=== PATIENT | female | born 1975 | race African-American/Black ===

== ENCOUNTER 2017-10-10 06:23 | Day surgery (SDC) | payer OTHER ==
[~2017-10-10] VITALS: Ht 179.1 cm; Wt 105.4 kg
[2017-10-10 06:46] VITALS: BP 140/98
[2017-10-10] MEDS ORDERED: NORMODYNE,TRAN200 MG PO (08:06)
[2017-10-10] MEDS ORDERED: MINIPRESS5 MG PO (08:06)
[2017-10-10] MEDS ORDERED: HYDRALAZINE HCL25 MG PO (08:08)
[2017-10-10] MEDS ORDERED: NORCO 5/3251 TABLET PO (10:07)
[2017-10-10 11:42] VITALS: BP 136/88
== END 2017-10-10 13:45 | disposition home or self-care (01) ==
LOC: SDC 06:23 → 2EAST 06:24 → SDC 21:58 → EDSTATUS 22:50 → SDC 22:58
PROC: 0WWG43Z Revision of Infusion Device in Peritoneal Cavity, Percutaneous Endoscopic Approach (ICD-10-PCS; principal; 2017-10-10)
DX: T85.611A Breakdown (mechanical) of intraperitoneal dialysis catheter, initial encounter (principal); Y81.2 Prosthetic and other implants, materials and accessory general- and plastic-surgery devices associated with adverse incidents; I12.0 Hypertensive chronic kidney disease with stage 5 chronic kidney disease or end stage renal disease; N18.6 End stage renal disease; Z99.2 Dependence on renal dialysis; E66.9 Obesity, unspecified; Z68.32 Body mass index [BMI] 32.0-32.9, adult
CPT/HCPCS: C1750; G0378; J0330; J0690; J1100; J2405; J2710; J3010; J7030; J7643; S0020

== ENCOUNTER 2017-10-15 14:41 | Day surgery (SDC) | payer OTHER ==
[~2017-10-15] VITALS: Ht 180.3 cm; Wt 104.7 kg
[~2017-10-15 14:41] MED LIST: ALLOPURINOL100 MG PO; BENADRYL25 MG PO; HYDRALAZINE HCL25 MG PO; MINIPRESS5 MG PO; NORCO 5/3251 TABLET PO; NORMODYNE,TRAN200 MG PO; ROCALTROL0.25 MCG PO
[2017-10-15 15:41] VITALS: BP 141/72
[2017-10-15 18:02] LABS: HEMATOCRIT 28.4 % (36.0-46.0); HEMOGLOBIN 8.9 G/DL (11.9-15.5); MCHC 31.3 G/DL (30.0-36.0); PLATELET COUNT 278 K/uL (156-360); RBC DIS.WIDTH-SD 39.3 % (39-53); RED BLOOD COUNT 3.42 M/uL (3.80-5.20)
[2017-10-15 18:16] LABS: CHLORIDE 109 mEq/L (99-109); POTASSIUM 3.5 mEq/L (3.7-5.4); SODIUM 142 mEq/L (136-147)
[2017-10-15 18:18] LABS: GLUCOSE 91 mg/dL (70-99)
[2017-10-15 18:22] LABS: CREATININE 4.3 mg/dL (0.6-1.3); GFR ESTIMATE (CALCULATED) 14 mL/min/
[2017-10-15 18:23] LABS: UREA NITROGEN (BUN) 33 mg/dL (9-23)
[2017-10-15 21:24] VITALS: BP 152/93
[2017-10-15 21:50] VITALS: BP 150/84
== END 2017-10-15 21:58 | disposition home or self-care (01) ==
LOC: SDC 14:41
PROVIDERS: Surgery
DX: T85.611A Breakdown (mechanical) of intraperitoneal dialysis catheter, initial encounter (principal); Y81.2 Prosthetic and other implants, materials and accessory general- and plastic-surgery devices associated with adverse incidents; N83.202 Unspecified ovarian cyst, left side; I12.0 Hypertensive chronic kidney disease with stage 5 chronic kidney disease or end stage renal disease; N18.6 End stage renal disease; Z99.2 Dependence on renal dialysis
CPT/HCPCS: 80048; 80048 91; 82948; 85027; 88304; 93005; J0690; J1100; J2405; J3010; S0020